=== PATIENT | female | born 1965 | race Caucasian/White ===

== ENCOUNTER 2018-11-22 09:30 | Inpatient (IN) | payer OTHER ==
[~2018-11-22] VITALS: Ht 170.2 cm; Wt 54.4 kg
[2018-11-22] MEDS ORDERED: IRON325 MG PO (11:11)
[2018-11-22] MEDS ORDERED: SODIUM SULFACE TP (11:11)
== END 2018-11-27 12:32 | DRG 743 ==
LOC: OB/GYN 11-25 06:00 → O/R 11-25 06:00 → SURH 11-25 09:30 → OB/GYN 11-25 16:37 → SURH 11-25 16:45 → OB/GYN 11-27 12:32
PROVIDERS: ADMIT Obstetrics & Gynecology Gynecologic Oncology
PROC: 0UT70ZZ Resection of Bilateral Fallopian Tubes, Open Approach (ICD-10-PCS; 2018-11-25)
PROC: 0UT20ZZ Resection of Bilateral Ovaries, Open Approach (ICD-10-PCS; 2018-11-25)
PROC: 0WJG0ZZ Inspection of Peritoneal Cavity, Open Approach (ICD-10-PCS; 2018-11-25)
PROC: 0UT90ZZ Resection of Uterus, Open Approach (ICD-10-PCS; principal; 2018-11-25 16:45)
DX: D25.1 Intramural leiomyoma of uterus (principal); D25.0 Submucous leiomyoma of uterus; D25.2 Subserosal leiomyoma of uterus; N80.0 Endometriosis of uterus; N83.11 Corpus luteum cyst of right ovary